=== PATIENT | female | born 1955 | race African-American/Black ===

== ENCOUNTER 2019-10-16 10:54 | Emergency (ER) | payer OTHER, MEDICAID ==
[~2019-10-16] VITALS: Ht 170.2 cm; Wt 104.3 kg
[~2019-10-16 10:54] MED LIST: AMLO5TAB4; CLON0.1T; CYCL10TA9; GABA-531 PO; HYDR-1189 PO; OMEP20CA11 PO; TRAM50TA2 PO; VALS160T2 PO
[2019-10-16 10:55] VITALS: BP_SYST 128
--- NOTE | 2019-10-16 10:55 | NUR ---
BROUGHT BACK TO BED #2 AND TRIAGED. REPORT GIVEN TO LEDA
--- NOTE | 2019-10-16 11:00 | NUR ---
x-ray at the bedside
--- NOTE | 2019-10-16 11:02 | NUR ---
ER at bedside examining patient.
--- NOTE | 2019-10-16 11:30 | NUR ---
Splint applied to finger. Pt tolerated well. Cap refill <3 prior and post application. Denies pain
[2019-10-16 11:48] VITALS: BP_SYST 114
--- NOTE | 2019-10-16 11:48 | NUR ---
Patient given written and verbal discharge instructions and verbalizes understanding. ER MD Tiwari discussed with patient the results and treatment provided. Patient in stable condition. ID arm band removed. No Rx given. Patient educated on pain management and to follow up with PMD. Pain Scale 0. Opportunity for questions provided and answered. Medication side effect fact sheet provided.
== END 2019-10-16 11:48 | disposition home or self-care (01) ==
LOC: SED 10:54
DX: S56.114A Strain of flexor muscle, fascia and tendon of left middle finger at forearm level, initial encounter (principal); I10 Essential (primary) hypertension; Z88.0 Allergy status to penicillin; Z88.1 Allergy status to other antibiotic agents; Z79.899 Other long term (current) drug therapy; Z90.49 Acquired absence of other specified parts of digestive tract; X58.XXXA Exposure to other specified factors, initial encounter; Y93.89 Activity, other specified; Y92.89 Other specified places as the place of occurrence of the external cause; Y99.8 Other external cause status
CPT/HCPCS: 73140-TC; 99283

== ENCOUNTER 2019-11-10 09:11 | Outpatient (CLI) | payer OTHER, MEDICAID | END 2019-11-10 20:49 | disposition home or self-care (01) | LOC: SMA 09:11 | PROVIDERS: ATTEND Internal Medicine | DX: Z12.31 Encounter for screening mammogram for malignant neoplasm of breast (principal) | CPT/HCPCS: 77067 ==

== ENCOUNTER 2021-12-02 15:51 | Emergency (ER) | payer OTHER, MEDICAID, SELFPAY ==
[~2021-12-02] VITALS: Ht 170.2 cm; Wt 108.9 kg
[~2021-12-02 15:51] MED LIST changes: +CYCL10TA25; -CYCL10TA9; -HYDR-1189 PO; +HYDR-3919 PO; -OMEP20CA11 PO; +OMEP20CA15 PO
[2021-12-02 16:00] VITALS: BP_SYST 195
--- NOTE | 2021-12-02 16:15 | NUR ---
placed in hallway
--- NOTE | 2021-12-02 16:17 | NUR ---
Pt AAO and ambulatory reporting loss of hearing X 3 days. Pt denies any acute injury or trauma.
--- NOTE | 2021-12-02 16:20 | NUR ---
dr. Sanchez examining pt
[2021-12-02] MEDS ORDERED: FLUT16SP16 NS (16:29)
[2021-12-02] MEDS ORDERED: MED4 PO (16:29)
[2021-12-02 16:35] VITALS: BP_SYST 172
--- NOTE | 2021-12-02 16:36 | NUR ---
Patient given written and verbal discharge instructions and verbalizes understanding. ER MD discussed with patient the results and treatment provided. Patient in stable condition. ID arm band removed. Rx of flonase and Medrol given. Patient educated on pain management and to follow up with PMD. Pain Scale 2/10 . Opportunity for questions provided and answered. Medication side effect fact sheet provided.
== END 2021-12-02 16:35 | disposition home or self-care (01) ==
LOC: SED 15:51
DX: T70.0XXA Otitic barotrauma, initial encounter (principal); I10 Essential (primary) hypertension; Z88.0 Allergy status to penicillin; Z88.1 Allergy status to other antibiotic agents; Z79.899 Other long term (current) drug therapy; X58.XXXA Exposure to other specified factors, initial encounter
CPT/HCPCS: 99281

== ENCOUNTER 2023-02-04 12:05 | Emergency (ER) | payer OTHER, MEDICAID ==
[~2023-02-04] VITALS: Ht 170.2 cm; Wt 99.8 kg
[~2023-02-04 12:05] MED LIST changes: +FLUT16SP16 NS; +MED4 PO
[2023-02-04 12:36] VITALS: BP_SYST 150
[2023-02-04] MEDS ORDERED: METOCLOPRAMIDE HCL 10 MG/2 ML VIAL IVP ONE (12:45)
[2023-02-04] MEDS ORDERED: MECLIZINE HCL 25 MG TABLET (ANITVERT) PO ONE (12:45)
--- NOTE | 2023-02-04 13:00 | NUR ---
ER at bedside examining patient.
[2023-02-04 13:01] LABS: BASOPHILS # (AUTO) 0.1 K/uL (0.0-0.2); EOSINOPHILS # (AUTO) 0.1 K/uL (0.0-0.4); EOSINOPHILS % (AUTO) 1.8 % (0.0-4.0); HEMATOCRIT 41.8 % (36-48); HEMOGLOBIN 13.5 g/dL (12.0-16.0); LYMPHOCYTES # (AUTO) 2.3 K/uL (1.0-5.5); LYMPHOCYTES % (AUTO) 28.1 % (20.5-51.5); MEAN CORPUSCULAR HEMOGLOBIN 28 pg (27-31); MEAN CORPUSCULAR HGB CONC 32 % (32-36); MEAN CORPUSCULAR VOLUME 87 fL (79.0-98.0); MONOCYTES # (AUTO) 0.5 K/uL (0.0-1.0); MONOCYTES % (AUTO) 6.1 % (1.7-9.3); NEUTROPHILS # (AUTO) 5.2 K/uL (1.8-7.7); PLATELET COUNT (AUTO) 331 K/uL (130-430); RED BLOOD CELL COUNT(AUTO) 4.83 MIL/uL (4.2-6.2); RED CELL DISTRIBUTION WIDTH 13.6 % (9.0-15.0); WHITE BLOOD COUNT (AUTO) 8.3 K/uL (4.8-10.8)
[2023-02-04 13:19] LABS: ANION GAP 7 (5-15); CALCIUM 8.8 mg/dL (8.4-11.0); CHLORIDE 104 mmol/L (98-107); CREATININE 0.64 mg/dL (0.55-1.30); GLUCOSE 94 mg/dL (70-99); UREA NITROGEN, BLOOD 11 mg/dL (8-21)
[2023-02-04 13:21] LABS: GFR AFRICAN AMERICAN 119 mL/min (>90)
[2023-02-04 13:24] LABS: ALANINE AMINOTRANSFERASE 25 U/L (12-78); ALBUMIN 3.1 g/dL (3.4-4.8); ASPARTATE AMINOTRANSFERASE 31 U/L (10-37); TOTAL BILIRUBIN 0.7 mg/dL (0.0-1.0)
--- NOTE | 2023-02-04 14:43 | NUR ---
Pt C/O left ear ringing, and dizziness Pt seen and evaluated by Dr. Barron Patient given written and verbal discharge instructions and verbalizes understanding. ER MD discussed with patient the results and treatment provided. Patient in stable condition. ID arm band removed. Patient educated on pain management and to follow up with PMD. Opportunity for questions provided and answered. Medication side effect fact sheet provided.
== END 2023-02-04 14:42 | disposition home or self-care (01) ==
LOC: SED 12:05
DX: R55 Syncope and collapse (principal); R42 Dizziness and giddiness; I10 Essential (primary) hypertension; Z88.0 Allergy status to penicillin; Z88.1 Allergy status to other antibiotic agents; Z79.899 Other long term (current) drug therapy
CPT/HCPCS: 36415; 70450-TC; 71045; 76376; 80053; 84484; 85025; 93005; 99284

== ENCOUNTER 2023-05-12 12:22 | Emergency (ER) | payer OTHER, MEDICAID ==
[~2023-05-12] VITALS: Ht 170.2 cm; Wt 104.3 kg
[2023-05-12 12:28] VITALS: BP_SYST 158
--- NOTE | 2023-05-12 13:05 | NUR ---
ER at bedside examining patient.
--- NOTE | 2023-05-12 13:19 | NUR ---
Pt complains of garble sounds in the right ear. Pt states cannot clearly hear from the right ear. Pt denies foreign bodies to the ear canal. Pt denies discharge. Pt is afebrile without pain.
[2023-05-12] MEDS ORDERED: GUAI-723 PO (13:22)
--- NOTE | 2023-05-12 13:43 | NUR ---
Patient given written and verbal discharge instructions and verbalizes understanding. ER MD discussed with patient the results and treatment provided. Patient in stable condition. ID arm band removed. Rx given. Patient educated on pain management and to follow up with PMD. Opportunity for questions provided and answered. Medication side effect fact sheet provided.
== END 2023-05-12 13:31 | disposition home or self-care (01) ==
LOC: SED 12:22
DX: H83.8X1 Other specified diseases of right inner ear (principal); H91.91 Unspecified hearing loss, right ear; I10 Essential (primary) hypertension; Z88.0 Allergy status to penicillin; Z88.1 Allergy status to other antibiotic agents; Z79.899 Other long term (current) drug therapy
CPT/HCPCS: 99281